=== PATIENT | male | born 1985 | race Caucasian/White ===

== ENCOUNTER → 2024-09-20 | Outpatient (CLI) | payer OTHER ==
--- NOTE | 2024-09-26 09:11 | MR ---
EXAMINATION TYPE: MR cervical spine wo con DATE OF EXAM: 09/20/2024 10:05 PM COMPARISON: None. CLINICAL INDICATION: Male, 38 years old with history of M54.12, Persist ant pain in right side of nec k, trap, scapula and shoulder, numbness and tingling. TECHNIQUE: Multiplanar multiecho imaging on a 3.0 Sindy magnet is performed through the cervical spin e. IV Contrast: mL (None, if empty) FINDINGS: The craniovertebral junction is normal. Vertebral body alignment is normal. C7-T1: No focal disc herniation or significant disc bulge is evident. No spinal canal stenosis or n eural foraminal stenosis is present. C6-7: Broad-based right paracentral disc bulge is present with moderate anterior thecal sac compressi on. This has cord contact. No spinal canal stenosis. Neural foramen are patent. C5-6: Broad-based disc bulge is present with mild anterior thecal sac compression. This is somewhat g reater with a central protrusion region small amount subligamentous disc extension. This may be prese nt inferiorly with no cord contact or spinal canal stenosis present. Neural foramen are patent.. C4-5: Mild endplate changes are present with anterior thecal sac flattening. No spinal canal stenosis present. Uncovertebral joint hypertrophy is contributing to foraminal narrowing.. C3-4: Central protrusion is mild anterior thecal sac compression. No cord contact is evident. No spin al canal stenosis is present. No foramen are patent. C2-3: Mild right paracentral disc bulge is present. This is broad based. Minimal anterior thecal sac compression is evident. No cord contact or spinal canal stenosis present. Neural foramen are patent.. IMPRESSION: 1. Right paracentral disc bulging C6-7 has moderate anterior thecal sac compression and cord contact. 2. Broad-based disc bulge at C5-6 with smaller central protrusion. 3. Mild disc bulging at C2-3 through C4-5 without spinal canal stenosis or cord contact. [facility], , 09/26/2024 9:08 AM
== END | disposition home or self-care (01) ==
LOC: RADMRIMAIN 21:45
PROVIDERS: ATTEND Physical Medicine & Rehabilitation
DX: M50.122 Cervical disc disorder at C5-C6 level with radiculopathy (principal)
CPT/HCPCS: 72141